=== PATIENT | male | born 1965 | race Caucasian/White ===

== ENCOUNTER 2019-08-18 12:18 | Emergency (ER) | payer OTHER ==
[2019-08-18] MEDS ORDERED: SODIUM CHLORIDE 0.9% (FLUSH) 10 ML SYG IV PRN (12:25)
[2019-08-18] MEDS ORDERED: LABETALOL INJ 5 MG/ML VIAL IV ONE ×4 (12:26→14:30)
[2019-08-18] MEDS ORDERED: SODIUM CHLORIDE 0.9% 1000ML 1,000 ML IVS ONE (12:26)
[2019-08-18 12:41] VITALS: TEMP 98.1
--- NOTE | 2019-08-18 12:47 | ED.PDOC ---
History of Present Illness - General Chief Complaint: Cardiovascular Problem Stated Complaint: high blood pressure Time Seen by Provider: 08/18/19 12:25 Source: patient - History of Present Illness Initial Comments: 54 yo male with PMH of HTN, DM2, a-fib who is sent from Dr. Fonseca's clinic for cc of poor energy and elevated blood pressure. Pt reports he has been feeling his usual self until he woke up today. States he has felt generally very fatigued with poor energy since waking up. Also reports intermittent blurry vision in both eyes. He checked his blood sugar at home which read >400. Sx's persisted so he went to Dr. Fonseca's clinic for evaluation and to establish care. There his BP was noted >180s/110s so he was sent over to ED for further eval. He recently moved here from [place] for work. States he ran out of all meds about 2 months ago and needs a new PCP. Takes several BP meds and Lantus 35 units BID. Unsure if he is on a blood thinner for a-fib but supposed to take a baby aspirin daily. Denies any chest pain, dyspnea, abd pain, n/v/d, urinary sx's, leg swelling, fevers, cough, dyspnea, sore throat. Allergies/Adverse Reactions: Allergies Penicillins Allergy (Verified 08/18/19 12:41) Review of Systems - Review of Systems Review of Systems: 08/18/19 12:47 as per HPI All other Systems: Reviewed and Negative Past Medical History (General) - Patient Medical History Hx Cardiac Disorders: Yes Hx Hypertension: Yes Hx Diabetes: Yes - Vaccination History Hx Tetanus, Diphtheria Vaccination: Yes Hx Influenza Vaccination: No Hx Pneumococcal Vaccination: No Immunizations Up to Date: No - Social History Hx Tobacco Use: Yes Hx Alcohol Use: No Hx Substance Use: No Hx Substance Use Treatment: No Hx Depression: No Family Medical History - Family History Mother Family History: Unknown Physical Exam - Physical Exam General Appearance: Alert, Comfortable, No apparent distress, Obese Eye Exam: bilateral normal Ears, Nose, Throat: hearing grossly normal, normal ENT inspection, normal pharynx Neck: non-tender, full range of motion, supple, normal inspection Respiratory: lungs clear, normal breath sounds, no respiratory distress, no accessory muscle use Cardiovascular/Chest: normal peripheral pulses, regular rate, rhythm, no edema, no gallop, no JVD, no murmur Peripheral Pulses: radial,right: 2+, radial,left: 2+ Gastrointestinal/Abdominal: non tender, soft, no organomegaly Back Exam: normal inspection, no CVA tenderness, no vertebral tenderness Extremity: non-tender, normal inspection, no pedal edema, no calf tenderness Neurologic: brimmer blocker II-XII nml as tested, no motor/sensory deficits, alert, normal mood/affect, oriented x 3 Skin Exam: normal color, warm/dry Progress - Progress Progress: 08/18/19 12:48 Fatigue, malaise -suspect due to hypertensive urgency primarily along with hyperglycemia. These issues are due to medication noncompliance from running out and not getting refills. Consider also ACS, CHF, a-fib, heat exhaustion, flu, infection, metabolic derangement, dehydration, DKA, HHS, other -BP 200s/120s on arrival, remainder of vitals wnl -obtain cardiac work-up, labs, flu, UA -place PIV, 1 L NS bolus, labetalol 10 mg IV q5-10 mins PRN 08/18/19 13:16 -BP improved slightly but still elevated 172/97. Will give another dose of Labetalol 10 mg IV. -POC glucose 320, remainder of labs pretty unremarkable thus far. Continue to monitor. 08/18/19 14:48 -BP improved to 160s/90s on last 2 checks after now total labetalol 30 mg IV & clonidine 0.2 mg PO. Pt remains stable, feeling a little better. If BP remains <180/110 and remains stable, will plan for dc to home with close PCP f/u. Dr. Fonseca has refilled his home medications with the pharmacy that he is to get filled and resume taking right away. 08/18/19 15:04 -Repeat BP's have remained 160-170/90s. Pt remains stable. Will discharge to home in good condition with plan above. Didier Byrnes MD Billing #[id number] 08/18/19 12:25 IV Care:Saline Lock per Protoc QSHIFT Telemetry .ONCE Sodium Chloride 0.9% (Flush) [Saline Flush Syringe] 10 ml IV PRN PRN EKG Stat Pulse Ox Stat Laboratory Results - last 24 hr 08/18/19 08/18/19 08/18/19 12:29 12:29 12:29 WBC RBC Hgb Hct MCV MCH MCHC RDW Plt Count MPV Absolute Neuts (auto) Absolute Lymphs (auto) Absolute Monos (auto) Absolute Eos (auto) Absolute Basos (auto) Neutrophils % Lymphocytes % Monocytes % Eosinophils % Basophils % Sodium Potassium Chloride Carbon Dioxide Anion Gap BUN Creatinine BUN/Creatinine Ratio POC Glucose 320 H Random Glucose Serum Osmolality Calcium Total Bilirubin 0.6 Direct Bilirubin 0.2 Indirect Bilirubin 0.4 AST 24 ALT 25 Alkaline Phosphatase 99 Creatine Kinase Troponin I < 0.02 B-Natriuretic Peptide 26.5 Serum Total Protein 7.3 Albumin 4.2 Urine Color Urine Appearance Urine pH Ur Specific [place] Urine Protein Urine Glucose (UA) Urine Ketones Urine Blood Urine Nitrite Urine Bilirubin Urine Urobilinogen Ur Leukocyte Esterase Urine RBC Urine WBC Ur Epithelial Cells Urine Bacteria 08/18/19 08/18/19 08/18/19 12:29 12:29 12:29 WBC 8.9 RBC 5.06 Hgb 16.9 Hct 48.8 MCV 96.4 H MCH 33.5 H MCHC 34.7 RDW 12.6 Plt Count 156 MPV 9.2 Absolute Neuts (auto) 5.80 Absolute Lymphs (auto) 2.00 Absolute Monos (auto) 0.80 Absolute Eos (auto) 0.20 Absolute Basos (auto) 0.10 Neutrophils % 65.4 Lymphocytes % 22.8 Monocytes % 9.1 H Eosinophils % 2.1 Basophils % 0.6 Sodium 138 Potassium 4.0 Chloride 104 Carbon Dioxide 24 Anion Gap 14.0 BUN 20 H Creatinine 1.09 BUN/Creatinine Ratio 18.3 POC Glucose Random Glucose 365 H Serum Osmolality 293.1 Calcium 9.2 Total Bilirubin Direct Bilirubin Indirect Bilirubin AST ALT Alkaline Phosphatase Creatine Kinase 71 Troponin I B-Natriuretic Peptide Serum Total Protein Albumin Urine Color Urine Appearance Urine pH Ur Specific [place] Urine Protein Urine Glucose (UA) Urine Ketones Urine Blood Urine Nitrite Urine Bilirubin Urine Urobilinogen Ur Leukocyte Esterase Urine RBC Urine WBC Ur Epithelial Cells Urine Bacteria 08/18/19 13:55 WBC RBC Hgb Hct MCV MCH MCHC RDW Plt Count MPV Absolute Neuts (auto) Absolute Lymphs (auto) Absolute Monos (auto) Absolute Eos (auto) Absolute Basos (auto) Neutrophils % Lymphocytes % Monocytes % Eosinophils % Basophils % Sodium Potassium Chloride Carbon Dioxide Anion Gap BUN Creatinine BUN/Creatinine Ratio POC Glucose Random Glucose Serum Osmolality Calcium Total Bilirubin Direct Bilirubin Indirect Bilirubin AST ALT Alkaline Phosphatase Creatine Kinase Troponin I B-Natriuretic Peptide Serum Total Protein Albumin Urine Color Yellow Urine Appearance Clear Urine pH 5.5 Ur Specific [place] 1.025 Urine Protein 30 Urine Glucose (UA) 500 H Urine Ketones Negative Urine Blood Trace-intact H Urine Nitrite Negative Urine Bilirubin Negative Urine Urobilinogen 0.2 Ur Leukocyte Esterase Negative Urine RBC 0 Urine WBC 0-1 Ur Epithelial Cells 0-1 Urine Bacteria 0 - EKG/XRAY/CT EKG: Sinus - NSR, HR 80, no ST elevs, q waves noted in anteroseptal leads possibly from old MO, axis and intervals normal, no prior EKG for comparison XRAY: chest - slightly enlarged heart without signs of fluid overload or other acute processes per my read Departure - Departure Clinical Impression: Poorly-controlled hypertension Hyperglycemia due to type 2 diabetes mellitus Qualifiers: Diabetes mellitus fci insulin use: with terminal block assembler use Qualified Code(s): E11.65 - Type 2 diabetes mellitus with hyperglycemia Time of Disposition: 14:46 Disposition: Discharge to Home or Self Care Condition: Fair Departure Forms: ED Discharge - Pt. Copy, Patient Portal Self Enrollment Instructions: DI for Chest Pain Diet: diabetic diet Activity: increase activity as tolerated Referrals: Larisa Fonseca MD [Primary Care Provider] - 1-2 Weeks Additional Instructions: Continue taking your home medications for high blood pressure, diabetes, and a- fib as prescribed by your primary care doctor. Get your prescriptions filled and take your appropriate doses beginning this evening if possible. Return if you develop concerning symptoms such as chest pain, shortness of breath, weakness, numbness, facial droop, slurred speech, etc... Follow up with your primary care doctor in next 1-2 weeks or sooner as needed.
--- NOTE | 2019-08-18 13:26 | RAD ---
EXAM DESCRIPTION: Chest,1 View CLINICAL HISTORY: 54 years Male, elevated blood pressure COMPARISON: None. TECHNIQUE: AP portable chest. FINDINGS: Heart size is normal with normal pulmonary vascularity. No consolidating infiltrate. No pulmonary mass or worrisome nodule. No pneumothorax or pleural effusion. Bones are unremarkable. IMPRESSION: No acute process is identified in the chest. Electronically signed by: Mike Peralta MD 08/18/2019 1:25 PM CDT
[2019-08-18] MEDS ORDERED: cloNIDine HCL 0.1 MG TAB PO ONE (13:43)
[2019-08-18 15:15] VITALS: BP 172/91; O2SAT 97
== END 2019-08-18 15:15 | disposition home or self-care (01) ==
LOC: ER 12:18
DX: I10 Essential (primary) hypertension (principal); E11.65 Type 2 diabetes mellitus with hyperglycemia; I48.91 Unspecified atrial fibrillation; Z91.14 Patient's other noncompliance with medication regimen; Z79.82 Long term (current) use of aspirin; F17.200 Nicotine dependence, unspecified, uncomplicated
CPT/HCPCS: 36415; 71045; 80048; 80076; 81001; 82550; 82948; 83880; 84484; 85025; 87502; 93005; J7030

== ENCOUNTER 2019-09-22 07:25 | Emergency (ER) | payer OTHER ==
[2019-09-22] MEDS ORDERED: SODIUM CHLORIDE 0.9% (FLUSH) 10 ML SYG IV PRN (07:41)
[2019-09-22] MEDS ORDERED: ONDANSETRON INJ 4 MG/2 ML VIAL IV ONE (07:42)
[2019-09-22] MEDS ORDERED: MORPHINE SULFATE INJ 10 MG/ML VIAL IV ONE (07:42)
[2019-09-22] MEDS ORDERED: SODIUM CHLORIDE 0.9% 1000ML 1,000 ML IVS ONE (07:43)
--- NOTE | 2019-09-22 07:44 | ED.PDOC ---
History of Present Illness - General Chief Complaint: Problem Stated Complaint: lower back pain Time Seen by Provider: 09/22/19 07:33 Source: patient Exam Limitations: no limitations - History of Present Illness Initial Comments: This is a 54-year-old male with history of A. fib, reportedly on an unknown blood thinner, insulin-dependent diabetes, hypertension, presenting to the emergency department with lower abdominal pain that woke him from sleep around 4:00 this morning. He reports associated nausea and vomiting and burning with urination. He denies any fever. Denies any history of kidney stones, denies any hematuria. He denies any diarrhea. No sick contacts. Allergies/Adverse Reactions: Allergies Penicillins Allergy (Verified 08/18/19 12:41) Home Medications: Ambulatory Orders Acetaminophen W/ Codeine [Tylenol W/ CODEINE #3] 1 - 2 tablet PO Q6H PRN #20 09/22/19 Aspirin [Aspirin Adult Low Dose] 2 tablet PO DAILY 09/22/19 Dulaglutide [Trulicity] 1.5 mg SC WKLY 09/22/19 Empagliflozin [Jardiance] 10 mg PO DAILY 09/22/19 Insulin Glargine [Lantus Solostar] 30 unit SC DAILY 09/22/19 Metformin HCl [Metformin HCl ER] 1,000 mg PO DAILY 09/22/19 Metoprolol Succinate [Metoprolol Succinate ER] 50 mg PO DAILY 09/22/19 Promethazine Tab [Phenergan Tablet] 12.5 - 25 mg PO Q6H PRN #12 tab 09/22/19 RX: Amiodarone HCl 200 mg PO BID 09/22/19 RX: Atorvastatin Calcium [Lipitor] 1 tablet PO DAILY 09/22/19 RX: Ciprofloxacin [Cipro] 500 mg PO BID #20 tab 09/22/19 RX: Furosemide 1 tablet PO DAILY 09/22/19 RX: Lisinopril 2.5 mg PO DAILY 09/22/19 RX: Spironolactone 12.5 mg PO DAILY 09/22/19 Review of Systems - Review of Systems Constitutional: States: chills. Denies: fever EENTM: Denies: ear discharge, nose congestion, throat pain Respiratory: Denies: cough, short of breath Cardiology: Denies: chest pain, edema, syncope Gastrointestinal/Abdominal: States: abdominal pain, nausea, vomiting. Denies: constipation, diarrhea Genitourinary: States: dysuria, pain. Denies: frequency, hematuria Musculoskeletal: States: back pain. Denies: joint pain, joint swelling, neck pain Skin: Denies: lesions, rash Neurological: Denies: headache, paresthesia, tingling Endocrine: Denies: excessive sweating, increased hunger, increased thirst, increased urine Hematologic/Lymphatic: Denies: no symptoms reported Past Medical History (General) - Patient Medical History Hx Cardiac Disorders: Yes Hx Congestive Heart Failure: No Hx Hypertension: Yes Hx Diabetes: Yes - Vaccination History Hx Tetanus, Diphtheria Vaccination: Yes Hx Influenza Vaccination: No Hx Pneumococcal Vaccination: No - Social History Hx Tobacco Use: Yes Hx Alcohol Use: No Hx Substance Use: No Hx Substance Use Treatment: No Hx Depression: No Family Medical History - Family History Mother Family History: Unknown Physical Exam - Physical Exam General Appearance: Alert, Well Developed, Well Groomed, Other - Appears uncomfortable Eye Exam: bilateral normal Ears, Nose, Throat: hearing grossly normal, normal ENT inspection, normal pharynx Neck: non-tender, full range of motion, supple Respiratory: chest non-tender, lungs clear, normal breath sounds, no respiratory distress Cardiovascular/Chest: normal peripheral pulses, no edema, no gallop Peripheral Pulses: radial,right: 2+, radial,left: 2+ Gastrointestinal/Abdominal: normal bowel sounds, soft, guarding, tenderness, other - Tenderness in the right lower quadrant with guarding, no rebound Back Exam: normal inspection, no CVA tenderness, no vertebral tenderness Extremity: normal range of motion, non-tender, normal inspection Neurologic: no motor/sensory deficits, alert, normal mood/affect, oriented x 3 Skin Exam: normal color, warm/dry Progress - Progress Progress: 09/22/19 08:48 Rechecked. Pain slightly improved, but not resolved. Fentanyl ordered. Patient had a brief possible reaction after the morphine was injected, face turned red, resolved after a few seconds. No need for any intervention since symptoms completely resolved very quickly. Will monitor.We received a list of his home medications. He is on amiodarone, aspirin only, no other blood thinners. He is on metformin, recommended he hold his metformin for the next [address] scan with contrast. 09/22/19 09:31 Rechecked. Pain improved after IV fentanyl. Discussed suspected diagnosis of pyelonephritis is the likely etiology of his pain. Discussed presence of gallstones, but right upper quadrant on exam is nontender, negative Howell sign. Low suspicion for cholecystitis at this time. No indication for emergent ultrasound. Will refer to general surgery for outpatient follow-up. His blood pressure is elevated, this is likely related to him not taking his oral medications this morning as well as pain. Will give p.o. lisinopril prior to discharge. Urine culture sent and pending at this time. Discussed need for follow-up with PCP in 2 to 3 days for recheck. Strict warnings given to return the emergency room for worsening pain, fever, intractable vomiting, changes mental status, or any other concerns. All questions answered. Patient comfortable plan for discharge home.Stressed importance of need for medication list to be carried in his wallet at all times for future ER visits. 09/22/19 09:37 DDX: Appendicitis, pyelonephritis, kidney stone, hepatobiliary disease MDM: Right lower quadrant pain with tenderness on exam, initially concerning for urinary infection/stone versus appendicitis. CT abdomen/pelvis showed no evidence of appendicitis. No evidence of urinary stone. He does have a gallstone on exam, but no evidence of cholecystitis, no right upper quadrant tenderness or Howell sign to suggest acute cholecystitis on exam. He did have nonspecific bladder thickening and UA suggestive of UTI, suspect pyelonephritis versus cystitis. Urine culture pending. Will discharge home with Cipro, pain control. Hypertensive due to not taking his home meds today. Will give p.o. dose of lisinopril prior to discharge. No indication for IV antihypertensives at this time Pascual Dumont DO [facility] # [id number] - Results/Orders Results/Orders: EKG reviewed by me at 0746. Normal sinus rhythm, rate of 71, normal axis, normal intervals, no ST segment elevations or depressions. 09/22/19 07:41 Sodium Chloride 0.9% (Flush) [Saline Flush Syringe] 10 ml IV PRN PRN 09/22/19 07:42 Hold Metformin x 48Hrs [id number] IV Care:Saline Lock per Protoc QSHIFT 09/22/19 07:45 EKG STAT 09/22/19 08:02 Urine Culture Stat 09/22/19 08:29 Urine Culture Stat Laboratory Results - last 24 hr 09/22/19 09/22/19 09/22/19 07:49 07:49 07:49 WBC 14.8 H RBC 4.32 L Hgb 14.5 Hct 42.0 MCV 97.1 H MCH 33.6 H MCHC 34.6 RDW 12.6 Plt Count 118 L MPV 8.7 Absolute Neuts (auto) 11.30 H Absolute Lymphs (auto) 1.70 Absolute Monos (auto) 1.60 H Absolute Eos (auto) 0.10 Absolute Basos (auto) 0.00 Neutrophils % 76.5 Lymphocytes % 11.4 L Monocytes % 11.0 H Eosinophils % 0.8 L Basophils % 0.3 PT 9.9 INR 1.00 PTT (SP) 23.9 Sodium 137 Potassium 3.7 Chloride 105 Carbon Dioxide 25 Anion Gap 10.7 L BUN 16 Creatinine 0.99 BUN/Creatinine Ratio 16.2 Random Glucose 229 H Serum Osmolality 282.3 Calcium 8.9 Total Bilirubin 1.1 H Direct Bilirubin 0.2 Indirect Bilirubin 0.9 H AST 17 ALT 24 Alkaline Phosphatase 87 Serum Total Protein 7.1 Albumin 3.8 Urine Color Urine Appearance Urine pH Ur Specific [place] Urine Protein Urine Glucose (UA) Urine Ketones Urine Blood Urine Nitrite Urine Bilirubin Urine Urobilinogen Ur Leukocyte Esterase Urine RBC Urine WBC Ur Epithelial Cells Amorphous Sediment Urine Bacteria 09/22/19 08:02 WBC RBC Hgb Hct MCV MCH MCHC RDW Plt Count MPV Absolute Neuts (auto) Absolute Lymphs (auto) Absolute Monos (auto) Absolute Eos (auto) Absolute Basos (auto) Neutrophils % Lymphocytes % Monocytes % Eosinophils % Basophils % PT INR PTT (SP) Sodium Potassium Chloride Carbon Dioxide Anion Gap BUN Creatinine BUN/Creatinine Ratio Random Glucose Serum Osmolality Calcium Total Bilirubin Direct Bilirubin Indirect Bilirubin AST ALT Alkaline Phosphatase Serum Total Protein Albumin Urine Color Yellow Urine Appearance Cloudy Urine pH 7.0 Ur Specific [place] 1.025 Urine Protein 100 H Urine Glucose (UA) 500 H Urine Ketones Negative Urine Blood Moderate H Urine Nitrite Positive H Urine Bilirubin Negative Urine Urobilinogen 1.0 Ur Leukocyte Esterase Small H Urine RBC 5-10 H Urine WBC 3-5 H Ur Epithelial Cells 1-3 Amorphous Sediment Trace Urine Bacteria 3+ H EXAM DESCRIPTION: Abdomen/Pelvis w/Contrast CLINICAL HISTORY: RLQ pain COMPARISON: None. TECHNIQUE: Noncontrast transaxial CT images of the abdomen and pelvis are obtained. This exam was performed according to our departmental dose- optimization program, which includes automated exposure control, adjustment of the mA and/or kV according to patient size and/or use of iterative reconstruction technique . FINDINGS: Visualized lung bases show no acute findings. Heart is mildly enl arged. Liver is heterogeneous and decreased attenuation compatible with diffuse fatty infiltration. The liver is enlarged at 19.2 cm. 6 mm calcified gallstone in the body of the gallbladder without gallbladder wall thickening or surrounding inflammation. No biliary tract obstruction. The spleen, pancreas, and adrenal glands are unremarkable. Mild scattered calcified plaque of the arterial vasculature. Fluid attenuation exophytic cyst of the midpole right kidney measures 3.2 cm. No nephrolithiasis. Small 13 mm cortical cyst of the lateral midpole left kidney. No ureteral calcifications or obstruction. Urinary bladder is poorly distended. Mild circumferential bladder wall thickening measuring up to 10 mm is seen. Prostate shows mild calcifications is mildly enlarged. Small fat-containing left inguinal hernia. The appendix is normal. Stomach is poorly distended but unremarkable. No small bowel obstruction or bowel wall thickening. Colon is unremarkable. No significant diverticular dis ease or bowel wall thickening/inflammatory changes. Small fat-containing umbilical hernia with soft tissue attenuation in the umbilicus of unknown etiology or clinical significance if any. No pathologically enlarged abdominal or retroperitoneal lymphadenopathy. Nonspecific less than 1 cm retroperitoneal lymph nodes are seen. Osseous structures show no aggressive bony lesions. Moderate spondylitic changes of the spine are seen. IMPRESSION: No acute findings on CT of the abdomen and pelvis. No CT evidence of acute appendicitis. Cholelithiasis. Consider further evaluation with right upper ultrasound if clinically indicated. Circumferential urinary bladder wall thickening could be secondary to poor distention of the urinary bladder. Other considerations include some degree of chronic bladder outlet obstruction. Infectious or inflammatory process can have a similar appearance. Hepatomegaly with diffuse fatty infiltration of the liver. Other findings as described in body of the report. Departure - Departure Clinical Impression: Acute right flank pain, Pyelonephritis, Gallstone, Type II diabetes mellitus Disposition: Discharge to Home or Self Care Condition: Good Departure Forms: ED Discharge - Pt. Copy, Patient Portal Self Enrollment Instructions: DI for Kidney Infection Referrals: Larisa Fonseca MD [Primary Care Provider] - 1-5 Days Portillo Mckinney MD [Active Staff] - 1-2 Weeks Prescriptions: Acetaminophen W/ Codeine [Tylenol W/ CODEINE #3] 1 - 2 tablet PO Q6H PRN #20 PRN Reason: Moderate To Severe Pain RX: Ciprofloxacin [Cipro] 500 mg PO BID #20 tab Promethazine Tab [Phenergan Tablet] 12.5 - 25 mg PO Q6H PRN #12 tab PRN Reason: Nausea Home Medications: Ambulatory Orders Acetaminophen W/ Codeine [Tylenol W/ CODEINE #3] 1 - 2 tablet PO Q6H PRN #20 09/22/19 Aspirin [Aspirin Adult Low Dose] 2 tablet PO DAILY 09/22/19 Dulaglutide [Trulicity] 1.5 mg SC WKLY 09/22/19 Empagliflozin [Jardiance] 10 mg PO DAILY 09/22/19 Insulin Glargine [Lantus Solostar] 30 unit SC DAILY 09/22/19 Metformin HCl [Metformin HCl ER] 1,000 mg PO DAILY 09/22/19 Metoprolol Succinate [Metoprolol Succinate ER] 50 mg PO DAILY 09/22/19 Promethazine Tab [Phenergan Tablet] 12.5 - 25 mg PO Q6H PRN #12 tab 09/22/19 RX: Amiodarone HCl 200 mg PO BID 09/22/19 RX: Atorvastatin Calcium [Lipitor] 1 tablet PO DAILY 09/22/19 RX: Ciprofloxacin [Cipro] 500 mg PO BID #20 tab 09/22/19 RX: Furosemide 1 tablet PO DAILY 09/22/19 RX: Lisinopril 2.5 mg PO DAILY 09/22/19 RX: Spironolactone 12.5 mg PO DAILY 09/22/19 Additional Instructions: Do not take your metformin for the next 48 hours since she received IV contrast for CT scan today. You may resume taking the medication on Sunday. Follow- up with your primary doctor later this week for recheck. Return to the emergency room immediately for worsening pain, fever, intractable vomiting, changes in mental status, inability to tolerate oral liquids or foods, or any other concerns
[2019-09-22] MEDS ORDERED: fentaNYL CITRATE INJ 50 MCG/ML 2 ML AMP ONE (08:37)
[2019-09-22] MEDS ORDERED: fentaNYL CITRATE INJ 50 MCG/ML 2 ML AMP IV ONE (08:38)
--- NOTE | 2019-09-22 09:06 | CT ---
EXAM DESCRIPTION: Abdomen/Pelvis w/Contrast CLINICAL HISTORY: RLQ pain COMPARISON: None. TECHNIQUE: Noncontrast transaxial CT images of the abdomen and pelvis are obtained. This exam was performed according to our departmental dose-optimization program, which includes automated exposure control, adjustment of the mA and/or kV according to patient size and/or use of iterative reconstruction technique . FINDINGS: Visualized lung bases show no acute findings. Heart is mildly enlarged. Liver is heterogeneous and decreased attenuation compatible with diffuse fatty infiltration. The liver is enlarged at 19.2 cm. 6 mm calcified gallstone in the body of the gallbladder without gallbladder wall thickening or surrounding inflammation. No biliary tract obstruction. The spleen, pancreas, and adrenal glands are unremarkable. Mild scattered calcified plaque of the arterial vasculature. Fluid attenuation exophytic cyst of the midpole right kidney measures 3.2 cm. No nephrolithiasis. Small 13 mm cortical cyst of the lateral midpole left kidney. No ureteral calcifications or obstruction. Urinary bladder is poorly distended. Mild circumferential bladder wall thickening measuring up to 10 mm is seen. Prostate shows mild calcifications is mildly enlarged. Small fat-containing left inguinal hernia. The appendix is normal. Stomach is poorly distended but unremarkable. No small bowel obstruction or bowel wall thickening. Colon is unremarkable. No significant diverticular disease or bowel wall thickening/inflammatory changes. Small fat-containing umbilical hernia with soft tissue attenuation in the umbilicus of unknown etiology or clinical significance if any. No pathologically enlarged abdominal or retroperitoneal lymphadenopathy. Nonspecific less than 1 cm retroperitoneal lymph nodes are seen. Osseous structures show no aggressive bony lesions. Moderate spondylitic changes of the spine are seen. IMPRESSION: No acute findings on CT of the abdomen and pelvis. No CT evidence of acute appendicitis. Cholelithiasis. Consider further evaluation with right upper ultrasound if clinically indicated. Circumferential urinary bladder wall thickening could be secondary to poor distention of the urinary bladder. Other considerations include some degree of chronic bladder outlet obstruction. Infectious or inflammatory process can have a similar appearance. Hepatomegaly with diffuse fatty infiltration of the liver. Other findings as described in body of the report. Electronically signed by: Blake Palacios MD 09/22/2019 9:04 AM CDT
[2019-09-22] MEDS ORDERED: LISINOPRIL 10 MG TAB PO ONE (09:21)
[2019-09-22] MEDS ORDERED: cefTRIAXone SODIUM 1 GM in SODIUM CHL 0.9% 50ML MIN-BAG+ 50 ML IVPB ONE (09:23)
[2019-09-22] MEDS ORDERED: cefTRIAXone SODIUM 1 GM VIAL ONE (09:27)
[2019-09-22] MEDS ORDERED: SODIUM CHL 0.9% 50ML MIN-BAG+ 50 ML IVPB ONE (09:27)
[2019-09-22 10:27] VITALS: TEMP 98.2; O2SAT 94
[2019-09-22 10:32] VITALS: BP 197/103
== END 2019-09-22 10:20 | disposition home or self-care (01) ==
LOC: ER 07:25
DX: N12 Tubulo-interstitial nephritis, not specified as acute or chronic (principal); E11.9 Type 2 diabetes mellitus without complications; K80.80 Other cholelithiasis without obstruction; I48.91 Unspecified atrial fibrillation; I10 Essential (primary) hypertension; R11.2 Nausea with vomiting, unspecified; Z79.01 Long term (current) use of anticoagulants; Z79.82 Long term (current) use of aspirin; Z79.4 Long term (current) use of insulin; Z79.899 Other long term (current) drug therapy; Z88.0 Allergy status to penicillin; Z87.891 Personal history of nicotine dependence
CPT/HCPCS: 36415; 74177; 80048; 80076; 81001; 85025; 85610; 85730; 87086; 93005; J0696; J2270; J2405; J3010; J7030; J7050